=== PATIENT | female | born 1955 | race Caucasian/White ===

== ENCOUNTER 2019-02-28 08:08 | Day surgery (SDC) | payer MEDICARE, MEDICAID ==
[2019-02-27 17:18] VITALS: BMI 28.1
--- NOTE | 2019-02-28 11:17 | OP ---
DATE OF PROCEDURE: 02/28/2019 PROCEDURES PERFORMED: Esophagogastroduodenoscopy with biopsy, colonoscopy with polypectomy. INDICATIONS FOR PROCEDURE: Chronic nausea and vomiting, midepigastric abdominal pain, screening for malignant neoplasm of the colon. DESCRIPTION OF PROCEDURE: After the risks and benefits of the procedure were explained to the patient and her surrogate including risks of bleeding, infection, perforation, reactions to anesthesia, aspiration and/or pain, informed consent was obtained. The patient was then taken to the endoscopy suite, where deep sedation was administered via propofol and anesthesia support. Once adequate sedation was achieved, the standard gastroscope was introduced into the mouth with intubation of the esophagus, stomach, and the proximal small intestine with the findings listed below. The patient tolerated the procedure well with no immediate perioperative complications. Upon conclusion of this portion of the procedure, all equipment was removed from the patient and the bed was then rotated 180 degrees in anticipation of the colonoscopy. A digital rectal examination was performed followed by introduction of the standard colonoscope, which was then advanced to the terminal ileum with some difficulty due to prep. The quality of the prep was fair with a large amount of liquid stool and a mild amount of solid retained stool seen throughout the entire colon. The patient tolerated the procedure well with no immediate perioperative complications. Upon completion of the colonoscopy, all equipment was removed from the patient, she was transferred to Day Stay in satisfactory condition. EGD FINDINGS: Esophagus: Normal-appearing mucosa was seen in the proximal and mid esophagus. However, in the distal esophagus, there were multiple linear erosions extending proximally from the GE junction measuring approximately 3 to 4 cm in length. They did involve the entire circumference of the esophagus, but were not continuous with one another between folds. There was no associated mass, lesions, or active/recent bleeding. The diaphragmatic pinch was seen at 35 cm while the GE junction was seen at 37 cm denoting a 2 cm hiatal hernia. Otherwise, there was no evidence of ulcerations, mass, lesions, or active/recent bleeding. Stomach: A large amount of retained liquids were seen in the stomach with approximately 500 mL retrieved upon entry into the stomach. Upon visualization of the gastric mucosa, increased mucosal erythema was seen throughout the entire stomach with no other associated pathology. Multiple biopsies were taken for evaluation. There was no evidence of erosions, ulcerations, mass, lesions, or active/recent bleeding. Duodenum: Normal-appearing mucosa was seen in the duodenal bulb, first and second portion of the duodenum. There was no evidence of erosions, ulcerations, mass, lesions, or active/recent bleeding. IMPRESSION: 1. [place] grade C reflux mediated erosive esophagitis. 2. Increased retained gastric contents concerning for gastroparesis. 3. Diffuse moderately severe gastric erythema, status post biopsies. 4. No evidence of gastric or duodenal outlet obstruction. COLONOSCOPY FINDINGS: Digital rectal exam: Normal findings were seen on external examination. Colon findings: A large amount of retained liquid stool was seen throughout the entire colon with inadequate visualization of the colonic mucosa given the fair prep. A moderate amount of retained particulate matter was also seen upon suctioning away the liquid. Again interfering with visualization of the colonic mucosa, the mucosa seen throughout this procedure (approximately 80% to 90%). Normal-appearing mucosa was seen within the terminal ileum as well as at the appendiceal orifice and ileocecal valve. Normal-appearing mucosa was also seen in the cecum. However, 2 polyps measuring 3 to 4 mm in size were seen in the proximal ascending colon and completely removed with cold snare polypectomy. The resection was complete, however, only one polyp was able to be retrieved. Normal-appearing mucosa was then seen in the distal ascending, transverse, and descending colons. Scattered small and large diverticula were seen within the sigmoid colon. A 4-to 5-mm polyp was seen in the sigmoid colon and completely removed with cold snare polypectomy. It was retrieved and placed in a specimen jar for evaluation. Normal-appearing mucosa was then seen within the rectum with normal findings on rectal retroflexion. IMPRESSION: 1. Retained liquid and solid stool preventing adequate visualization of the colonic mucosa, lesions less than 5 mm in size may have been missed. 2. Two 3-to 4-mm ascending colon polyp, status post cold snare polypectomy. 3. A 4-to 5-mm sigmoid colon polyp, status post cold snare polypectomy. 4. [id number] sigmoid diverticulosis. RECOMMENDATIONS: 1. We would place the patient on omeprazole 40 mg daily for erosive esophagitis if she has not already. 2. We would obtain a gastric emptying study as an outpatient for further evaluation of her chronic nausea and vomiting. 3. We would re-evaluate her medication list for any medications that could potentially decrease gastric emptying. 4. We will follow up on the biopsy results with repeat upper endoscopy and colonoscopy intervals depending on pathology results. 5. Continue other medications as prescribed by the primary provider. Job ID: [id number]
== END 2019-02-28 11:30 | disposition home or self-care (01) ==
LOC: SDC 08:08
PROVIDERS: ATTEND Internal Medicine
PROC: 0DB68ZX Excision of Stomach, Via Natural or Artificial Opening Endoscopic, Diagnostic (ICD-10-PCS; principal; 2019-02-28)
PROC: 0DBK8ZX Excision of Ascending Colon, Via Natural or Artificial Opening Endoscopic, Diagnostic (ICD-10-PCS; 2019-02-28)
PROC: 0DBN8ZX Excision of Sigmoid Colon, Via Natural or Artificial Opening Endoscopic, Diagnostic (ICD-10-PCS; 2019-02-28)
DX: Z12.11 Encounter for screening for malignant neoplasm of colon (principal); D12.2 Benign neoplasm of ascending colon; K63.5 Polyp of colon; K57.30 Diverticulosis of large intestine without perforation or abscess without bleeding; K22.10 Ulcer of esophagus without bleeding; K21.0 Gastro-esophageal reflux disease with esophagitis; K31.89 Other diseases of stomach and duodenum; K44.9 Diaphragmatic hernia without obstruction or gangrene; F41.9 Anxiety disorder, unspecified; E55.9 Vitamin D deficiency, unspecified; F17.210 Nicotine dependence, cigarettes, uncomplicated; E72.20 Disorder of urea cycle metabolism, unspecified; Z79.899 Other long term (current) drug therapy; Z88.0 Allergy status to penicillin; Z88.2 Allergy status to sulfonamides; Z88.8 Allergy status to other drugs, medicaments and biological substances
CPT/HCPCS: 88305; 88312